=== PATIENT | female | born 1940 | race Caucasian/White ===

== ENCOUNTER → 2017-12-27 | Outpatient (CLI) | payer MEDICARE ==
[~2017-12-27] MED LIST: REGADENOSON 0.4 MG/5 ML SYRINGE ONE
== END ==
LOC: RAD 07:21
PROVIDERS: ATTEND Internal Medicine Cardiovascular Disease
DX: Z01.810 Encounter for preprocedural cardiovascular examination (principal); I10 Essential (primary) hypertension; Z82.49 Family history of ischemic heart disease and other diseases of the circulatory system
CPT/HCPCS: 78452; 93017; A9502; J2785